=== PATIENT | female | born 1965 | race Caucasian/White ===

== ENCOUNTER 2018-08-03 20:53 | Emergency (ER) | payer BC ==
[~2018-08-03] VITALS: Ht 172.7 cm; Wt 76.9 kg
[~2018-08-03 20:53] MED LIST: LIDO20SO PO
[2018-08-03 22:36] VITALS: BP 132/65
== END 2018-08-03 22:40 | disposition home or self-care (01) ==
LOC: ER 20:54
DX: R59.0 Localized enlarged lymph nodes (principal); R21 Rash and other nonspecific skin eruption; Z00.00 Encounter for general adult medical examination without abnormal findings; G89.29 Other chronic pain; Z88.5 Allergy status to narcotic agent; Z79.899 Other long term (current) drug therapy
CPT/HCPCS: 99281

== ENCOUNTER 2023-07-27 14:09 | Emergency (ER) | payer BC ==
[~2023-07-27] VITALS: Ht 170.2 cm; Wt 81.8 kg
[2023-07-27 14:22] VITALS: TEMP 98
[2023-07-27] MEDS: LIDOcaine 1% 30ml preserv. free vial SQ STA (14:56)
[2023-07-27] MEDS: TETanus/Pertussis (Acell)/Diphther VAC/PF (Tdap-Adult) 0.5ml syringe IMVAC ONE (14:57)
[2023-07-27 16:01] VITALS: BP 116/87; PULSE 72; RESP 12; O2SAT 98
== END 2023-07-27 16:03 | disposition home or self-care (01) ==
LOC: ER 14:11
DX: S61.307A Unspecified open wound of left little finger with damage to nail, initial encounter (principal); Z88.5 Allergy status to narcotic agent; W26.8XXA Contact with other sharp object(s), not elsewhere classified, initial encounter; Y93.89 Activity, other specified; Y92.89 Other specified places as the place of occurrence of the external cause; Y99.8 Other external cause status
CPT/HCPCS: 12001; 73130; 90471; 90715; 99283; A6258; A6449

== ENCOUNTER 2024-11-27 11:00 | Emergency (ER) | payer BC ==
[~2024-11-27] VITALS: Ht 170.2 cm; Wt 77.3 kg
[2024-11-27 11:10] VITALS: TEMP 97
--- NOTE | 2024-11-27 14:04 | Physician Documentation ---
History of Present Illness ~ Chief Complaint: Diarrhea Stated Complaint: DIARRHEA Time Seen by MD: 13:54 Primary Medical Doctor: NONE Mode of Arrival: Ambulatory HPI 59-year-old female presents to the ED with one-week of diarrhea and GI upset. She says last Wednesday that she ate which she believes was bad chicken. Since then she has developed increased symptoms and over this last weekend she develop abdominal cramping and profuse diarrhea. States she feels weaker than normal. Denies any chest pain shortness of breath and has mild nausea Day of Onset: Nov 27, 2024 Medication Reconciliation Allergies: Coded Allergies: codeine (Verified Allergy, Unknown, 11/27/24) Scheduled Lidocaine Hcl (Lidocaine Hcl Viscous), 15 ML PO Q6H Past Medical History Past Medical History: Chronic Back Pain Past Surgical History: no surgical history Alcohol Use: Occasionally Drug Use: none Lives with: Family Lives In: Home Occupation: employed Physical Exam Vital Signs: Temperature: 97.0, Heart Rate: 72, Respiratory Rate: 14, BP: 104/62, Pulse Oximetry: 99, Weight: 77.300 Oxygen Flow Rate: 0 Progress Results/Orders Results/Orders Completed Orders - ESTEBAN BRANTLEY [employer] Hcg, Ur Ql (11/27/24 13:55) Cbc/Diff (11/27/24 13:55) BMP (11/27/24 13:55) Lipase (11/27/24 13:55) CMP (11/27/24 13:55) Normal Saline 1000ml (0.9% Sodium Chlori (11/27/24 14:05) Loperamide Capsule (Imodium Capsule) (11/27/24 14:05) Ondansetron Inj. (Zofran 4mg/2ml Vial) (11/27/24 14:05) Ua W/Microscopic, Cult If Ind (11/27/24 14:21) Medications Received in ER Medications (Trade) Dose Ordered Sig/Mick Route PRN Reason Start Time Stop Time Status Last Admin Dose Admin (0.9% sodium chloride (NS) 1000ml IV soln) 1,000 ml ONCE ONCE IVB 11/27/24 14:05 11/27/24 14:06 DC 11/27/24 14:32 1,000 ML (Imodium capsule) 2 mg ONCE ONCE PO 11/27/24 14:05 11/27/24 14:06 DC 11/27/24 14:31 2 MG (Zofran 4mg/2ml vial) 4 mg ONCE ONCE IV 11/27/24 14:05 11/27/24 14:06 DC 11/27/24 14:32 4 MG Vital Signs 11/27/24 11/27/24 11/27/24 11:10 13:18 14:30 Temp 97.0 Pulse 72 62 Resp 18 14 16 B/P (MAP) 104/62 108/58 (75) Pulse Ox 99 98 O2 Flow Rate 0 Laboratory Tests Test 11/27/24 14:21 11/27/24 14:27 11/27/24 14:31 Urine Specimen Description Cln catch midstream Urine Color Yellow Urine Clarity Clear Urine pH 7.0 Urine Specific [place] <=1.005 Urine Protein Negative Urine Glucose (UA) Negative Urine Ketones Negative Urine Occult Blood Trace-intact Urine Nitrite Negative Urine Bilirubin Negative Urine Urobilinogen 0.2 Urine Leukocyte Esterase Negative Urine RBC 3-10 Urine WBC 0-4 Urine Squamous Epithelial Cells Few Urine Bacteria Few Urine Mucus None seen Urine Culture Indicated Not ind Volume Urine Centrifuged 10 ml Urine HCG, Qualitative Negative Urine Comment Sodium Level 143 Potassium Level 3.7 Chloride Level 106 Carbon Dioxide Level 28.6 Anion Gap 8 Blood Urea Nitrogen 10 Creatinine 1.11 H Estimated GFR/1.73 m2 50 BUN/Creatinine Ratio 9.0 L Glucose Level 90 Calcium Level 8.6 Total Bilirubin 0.5 Aspartate Amino Transf (AST/SGOT) 26 Alanine Aminotransferase (ALT/SGPT) 30 Alkaline Phosphatase 76 Total Protein 7.3 Albumin 3.2 L Globulin 4.1 Albumin/Globulin Ratio 0.8 L Lipase 24 Chemistry Comments White Blood Count 5.2 Red Blood Count 4.46 Hemoglobin 13.3 Hematocrit 39.6 Mean Corpuscular Volume 88.7 Mean Corpuscular Hemoglobin 29.8 Mean Corpuscular Hemoglobin Concent 33.6 Red Cell Distribution Width 13.1 Platelet Count 255 Mean Platelet Volume 7.6 Neutrophils (%) (Auto) 50.2 Lymphocytes (%) (Auto) 33.2 Monocytes (%) (Auto) 13.8 H Eosinophils (%) (Auto) 2.2 Basophils (%) (Auto) 0.6 Neutrophils # (Auto) 2.6 Lymphocytes # (Auto) 1.7 Monocytes # (Auto) 0.7 Eosinophils # (Auto) 0.1 Basophils # (Auto) 0.0 CBC Comment Medical Decision Making Findings This patient presented to though the clinical indications for salmonella. This is based on her length of symptoms and reported ingestion of bad chicken. She is hemodynamically stable labs are reassuring. I gave her Imodium may be an fluid hydration via IV along with Zofran. Reports overall improved symptoms I am going to send her home with ciprofloxacin to cover salmonella. Diff Dx GI Bleed:Consideration: Include: AE fistula, Angiodysplasia, Bleeding diathesis, Blood loss anemia, Carcinoma, Diverticulosis, Diverticulitis, Esophageal varicies, Esophagitis, Gastritis, Gastroenteritis, Inflammatory BD, Mandi-Dukes syndrome, Meckel's diverticulum, PUD, Other Diff Dx N/V/D:Considerations: Include: Appendicitis, Bowel obstruction, Dehydration, DKA, Diarrhea - bacterial, Diarrhea - parasitic, Diarrhea - viral, Diverticulitis, Diverticulosis, Drug toxicity, Electrolyte imbalance, Food poisoning, Gastroenteritis, GE reflux, GI bleed, Hepatitis, Hernia, Hypovolemia, Hypotension, Inflammatory BD, Impaction, Malnutrition, Pancreatitis, , PUD, Renal failure, Urolithiasis, Urinary obstruction, UTI, Other Departure Disposition: HOME / SELF CARE / HOMELESS Impression: Primary Impression: Salmonella Additional Impression: Diarrhea Discharge Instructions: Diarrhea, Adult, Salmonella Gastroenteritis, Adult Referrals: NO PRIMARY CARE PROVIDER (PCP) Prescriptions Loperamide HCl (Imodium A-D) 2 Mg Capsule 1 CAP PO Q8H for 5 Days, #15 CAP 0 Refills Prov: ESTEBAN BRANTLEY NP 11/27/24 Ciprofloxacin HCl (Ciprofloxacin HCl) 500 Mg Tab 1 TAB PO Q12H for 10 Days, #20 TAB Prov: ESTEBAN BRANTLEY NP 11/27/24 Education Educated: Patient Educated regarding: diagnosis Signature Scribe Signature: Attestation: Scribed for Esteban Brantley Gis Programmer by Esteban Pretty NP . 11/27/24 14:47 ESTEBNA BRANTLEY NP Nov 27, 2024 14:04
[2024-11-27] MEDS: loperamide 2mg capsule PO ONE (14:31)
[2024-11-27] MEDS: ondansetron/PF 4mg/2ml inj IV ONE (14:32)
[2024-11-27] MEDS: normal saline 1000ML IV soln IVB ONE (14:32)
[2024-11-27 14:41] LABS: LEUKOCYTE ESTERASE ,URINE NEGATIVE (Neg); NITRITES, URINE NEGATIVE (Neg); OCCULT BLOOD,URINE TRACE-INTACT (Neg)
[2024-11-27 14:41] LABS: MEAN PLATELET VOLUME 7.6 FL (7.4-10.4); RED CELL DISTRIBUTION WIDTH 13.1 % (11.5-14.5)
[2024-11-27 14:42] LABS: URINE HCG NEGATIVE (NEG)
[2024-11-27 14:46] LABS: UA COLLECTION TYPE CLN CATCH MIDSTREAM
[2024-11-27 14:53] LABS: MUCUS STRANDS NONE SEEN /LPF (Neg); SQUAMOUS EPITHELIAL CELL,UR FEW /LPF (FEW)
[2024-11-27 14:56] LABS: CREATININE 1.11 MG/DL (0.40-0.90); TOTAL CARBON DIOXIDE 28.6 MMOL/L (24-32); eCRCL 52 ML/MIN; eGFR 50 ML/MIN
[2024-11-27] MEDS ORDERED: LOPE-190 PO (15:07)
[2024-11-27] MEDS ORDERED: CIPR-458 PO (15:07)
[2024-11-27 15:48] VITALS: BP 109/69; PULSE 61; RESP 14; O2SAT 98
== END 2024-11-27 15:54 | disposition home or self-care (01) ==
LOC: ER 11:01
DX: A02.9 Salmonella infection, unspecified (principal); R19.7 Diarrhea, unspecified; G89.29 Other chronic pain; Z88.5 Allergy status to narcotic agent; Z72.89 Other problems related to lifestyle; Z79.899 Other long term (current) drug therapy
CPT/HCPCS: 36415; 80053; 81001; 81025; 83690; 85025; 96361; 96374; 99283; J2405; J7030